=== PATIENT | female | born 1985 | race Two or more races ===

== ENCOUNTER 2019-10-18 14:23 | Emergency (ER) | payer OTHER ==
[~2019-10-18] VITALS: Ht 162.6 cm; Wt 81.6 kg
--- NOTE | 2019-10-18 15:15 | NUR ---
DR MIRZA AT BEDSIDE FOR SUTURE.
[2019-10-18 15:25] VITALS: BP 122/72
--- NOTE | 2019-10-18 15:26 | NUR ---
Patient discharged to home in stable conditon. Written and verbal after care instructions given. Patient verbalizes understanding of instructions. Patient will follow up with PMD for Tetanus vaccines.
== END 2019-10-18 15:29 | disposition home or self-care (01) ==
LOC: ER 14:28
DX: S61.411A Laceration without foreign body of right hand, initial encounter (principal); W26.8XXA Contact with other sharp object(s), not elsewhere classified, initial encounter; Y93.89 Activity, other specified; Y92.89 Other specified places as the place of occurrence of the external cause; Y99.8 Other external cause status
CPT/HCPCS: A4663